=== PATIENT | male | born 1950 | race African-American/Black ===

== ENCOUNTER 2020-08-21 16:06 | Observation (INO) ==
[2020-08-21] MEDS ORDERED: ENOXAPARIN 40 MG/0.4 ML SYRINGE SUBCUT SCH (21:00)
[2020-08-21] MEDS ORDERED: ZALEPLON 5 MG CAPSULE PO PRN (21:21)
[2020-08-21] MEDS ORDERED: ACETAMINOPHEN 325 MG TABLET PO PRN (21:21)
[2020-08-21] MEDS ORDERED: GLUCAGON 1 MG VIAL IM PRN ×2 (21:21)
[2020-08-21] MEDS ORDERED: DEXTROSE 50% 25 GM/50 ML VIAL IV PRN ×2 (21:21)
[2020-08-21] MEDS ORDERED: FLUTICASONE 50 MCG NASAL SPRAY 16 GM BOTTLE BOTH NARES PRN (21:31)
[2020-08-21] MEDS: SODIUM CHLORIDE 0.9% 1,000 ML IV SCH (21:49)
[2020-08-21] MEDS ORDERED: INSULIN GLARGINE 100 UNIT/ML SUBCUT SCH (22:00)
[2020-08-21] MEDS ORDERED: ATORVASTATIN 40 MG TABLET PO SCH (22:00)
[2020-08-22 06:00] LABS: Basophils % 0.4 % (0.0-0.8); Eosinophils % 0.6 % (0.00-10.9); Hematocrit 46.5 VOL% (42.0-52.0); Immature Granulocytes % 0.6 %; Immature Granulocytes Absolute 0.03 #; Lymphocytes # 2.1 10*3/uL (1.4-4.0); Lymphocytes % 41.9 % (21.2-54.2); Mean Corpuscular HGB Conc 32.3 GM/DL (32-36); Mean Corpuscular Volume 84.2 FL (87-102); Monocytes % 12.3 % (1.7-12.7); Neutrophils % 44.2 % (38.7-73.9); Platelet Count 120 T/CUMM (130-400); Red Blood Count 5.52 MC/CUMM (3.8-5.5); Red Cell Distribution Width 13.2 % (9.3-17.3); White Blood Count 5.1 T/CUMM (4-12)
[2020-08-22 06:32] LABS: Albumin 3.2 G/DL (3.4-5.0); Bilirubin,Total 0.4 MG/DL (0.2-1.0); Calcium 8.4 MG/DL (8.5-10.1); Osmolality,Calculated 277.7 MOS/KG (273-304); Potassium 4.6 MMOL/L (3.5-5.1); Total Protein 6.3 G/DL (6.4-8.2)
[2020-08-22] MEDS: SODIUM CHLORIDE 0.9% 1,000 ML IV SCH ×3 (08:03→17:03)
[2020-08-22] MEDS: INSULIN REGULAR 100 UNIT/ML SUBCUT SCH ×3 (08:06→17:03)
[2020-08-22] MEDS ORDERED: PANTOPRAZOLE 40 MG TABLET PO SCH (09:00)
[2020-08-22] MEDS ORDERED: ASPIRIN CHEW 81 MG TABLET PO SCH (09:00)
[2020-08-22] MEDS ORDERED: lisinopriL 5 MG TABLET PO SCH (09:00)
[2020-08-22 16:26] VITALS: BP 132/76
[2020-08-22] MEDS ORDERED: LATANOPROST 0.005% OPH SOLN 2.5 ML BOTTLE BOTH EYES SCH (21:00)
[2020-08-23] MEDS ORDERED: CLOPIDOGREL 75 MG TABLET PO SCH (09:00)
== END 2020-08-22 18:48 | disposition home or self-care (01) ==
LOC: N.TELEN → SUATTDRO 17:52
PROVIDERS: ADMIT Internal Medicine; ATTEND Internal Medicine Geriatric Medicine